=== PATIENT | female | born 1980 | race African-American/Black ===

== ENCOUNTER 2019-06-02 16:23 | Emergency (ER) | payer SELFPAY ==
[~2019-06-02] VITALS: Ht 170.2 cm; Wt 70.0 kg
[2019-06-02] MEDS ORDERED: IV NORMAL SALINE 1000ML BAG 1,000 ML IV ONE (17:15)
[2019-06-02] MEDS ORDERED: HALOPERIDOL LACTATE 5 MG/ML VIAL. IM ONE (17:15)
--- NOTE | 2019-06-02 17:36 | PHYS DOC ---
Past Medical History Past Medical History: No Pertinent History, Uterine Fibroids Past Surgical History: Other Additional Past Surgical Histo: LEAP Smoking Status: Current Every Day Smoker Alcohol Use: None Drug Use: None Adult General Chief Complaint Chief Complaint: DRUG ABUSE HPI HPI 39-year-old female presenting the emergency department today with suspected drug use. EMS brings patient in after domestic partner reports patient has been using PCP. Upon arrival the patient, initially the patient was mildly agitated however after talking to the patient for a while she calmed down. Talking with her, she is oriented alert. She knows the year her name and she is at the hospital. She is able to ambulate without difficulty by herself. She does not have any symptoms and she would like to go home. She denies suicidal or homicidal ideation. She denies any pain. Onset a day. Location generalized. Duration constant. No alleviating factors. She denies drinking or using drugs recently. Review of systems negative for chest pain shortness of breath abdominal pain vomiting fevers chills head injury. All other ROS is negative unless otherwise noted. ED course: 39-year-old female presenting the emergency department today by EMS after suspected drug use. On arrival the patient is cooperative and calm. She is oriented alert and demonstrates insight into her situation. She is tachycardic at about 130. Blood pressure is elevated 159. Patient would like to leave. She demonstrates medical decision-making capacity. We will have the nurse contact a close friend or relative. I have canceled the medical work-up. We will observe the patient in the emergency department until she is more sober and we can find a safe place for the patient. The patient was signed out at 6 PM to the oncoming physician for further treatment and final disposition. Review of Systems Review of Systems All other review of systems is negative unless otherwise noted in history of present illness. Current Medications Current Medications Current Medications Medications (Trade) Dose Ordered Sig/Johnnie Start Time Stop Time Status Last Admin Dose Admin Haloperidol Lactate (Haldol Inj) 5 mg 1X ONCE 06/02/19 17:15 06/02/19 17:30 DC Lorazepam (Ativan Inj) 1 mg 1X ONCE 06/02/19 17:15 06/02/19 17:30 DC Sodium Chloride 1,000 ml @ 1,000 mls/hr 1X ONCE 06/02/19 17:15 06/02/19 18:14 Allergies Allergies Allergies Coded Allergies Type Severity Reaction Last Updated Verified No Known Drug Allergies 10/25/13 No Physical Exam Physical Exam SEE ABOVE. Constitutional: Well developed, well nourished, no acute distress, non-toxic appearance. [] HENT: Normocephalic, atraumatic, bilateral external ears normal, oropharynx moist, no oral exudates, nose normal. [] Eyes: PERRLA, EOMI, conjunctiva normal, no discharge. [] Neck: Normal range of motion, no tenderness, supple, no stridor. [] Cardiovascular:Heart rate regular rhythm, no murmur [] Lungs & Thorax: Bilateral breath sounds clear to auscultation [] Abdomen: Bowel sounds normal, soft, no tenderness, no masses, no pulsatile masses. [] Skin: Warm, dry, no erythema, no rash. [] Back: No tenderness, no CVA tenderness. [] Extremities: No tenderness, no cyanosis, no clubbing, ROM intact, no edema. [] Neurologic: Mental status: Awake oriented and alert x3 Cranial nerves: Extraocular movements intact, eyebrows dain bilaterally, smile symmetric, uvula elevation nl, shoulder shrug intact bilaterally, tongue protrusion normal DTRs: 2+ Sensation: equal and normal in all extremities Strength: 5/5 in upper and lower extremities bilaterally Gait: Patient is able to ambulate without assistance. Psychologic: Affect normal, judgement normal, mood normal. [] Current Patient Data Vital Signs Vital Signs Date Time Temp Pulse Resp B/P (MAP) Pulse Ox O2 Delivery O2 Flow Rate FiO2 06/02/19 17:07 132 16 159/87 (111) 100 Room Air EKG EKG [] Radiology/Procedures Radiology/Procedures [] Course & Med Decision Making Course & Med Decision Making Pertinent Labs and Imaging studies reviewed. (See chart for details) [] Dragon Disclaimer Dragon Disclaimer This electronic medical record was generated, in whole or in part, using a voice recognition dictation system. Departure Departure Impression: Primary Impression: Encounter for medical screening examination Condition: STABLE Referrals: NO PCP (PCP) Patient Instructions: Drug Abuse, FAQs LEFTY WEINBERG MD Jun 02, 2019 17:36
[2019-06-02 19:36] VITALS: BP 143/101
== END 2019-06-02 20:01 | disposition home or self-care (01) ==
LOC: ER 16:23
DX: R45.1 Restlessness and agitation (principal); R00.0 Tachycardia, unspecified; F17.200 Nicotine dependence, unspecified, uncomplicated; Z98.890 Other specified postprocedural states
CPT/HCPCS: 99285; J7030